=== PATIENT | female | born 1940 | race Caucasian/White ===

== ENCOUNTER 2018-04-26 06:53 | Inpatient (IN) | payer MEDICAID, MEDICARE ==
[~2018-04-26 06:53] MED LIST: MORPHINE SULFATE 15 MG TABLET.SA PO PRN; TRANEXAMIC ACID 1,000 MG in NORMAL SALINE 100 ML IV PRN; ceFAZolin SODIUM 1 GM VIAL IV PRN
[2018-04-26 07:20] LABS: Prothrombin Time (Patient) 11.5 Seconds (9.0-11.0)
[2018-04-26 07:23] LABS: INR 1.15 INR (0.90-1.10)
--- NOTE | 2018-04-26 07:32 | ANES ---
Anesthesia Pre Procedure Eval Vitals/Labs: Last Vital Signs Temp 37.1 C 04/26/18 07:04 Pulse 85 04/26/18 07:04 Resp 18 04/26/18 07:04 BP 170/90 H 04/26/18 07:04 Pulse Ox 92 L 04/26/18 07:04 HOME MEDICATIONS Metoprolol Succinate [Toprol Xl] 50 mg PO DAILY 05/19/16 [Last Taken 04/20/18] Warfarin Sodium [Coumadin] 7.5 mg PO DAILY 11/18/16 [Last Taken 04/20/18] hydrocodone 5 mg-acetaminophen 325 mg tablet 1 tab PO Q4H PRN #20 tab 04/20/18 [Last Taken Unknown] Allergies/Adverse Reactions: Allergies Allergy/AdvReac Type Severity Reaction Status Date / Time No Known Allergies Allergy Verified 04/26/18 07:07 - Planned Procedure Planned Procedure: Right Arthroplasty Total Shoulder Reverse Medication List Reviewed:: Yes Allergies Verified: Yes Medical History (Last Reviewed 04/26/18 @ 07:31 by Adan Rendon CRNA) Fatigue (Acute) Hypertension (Chronic) Urinary incontinence (Chronic) Onset Date: Unknown Screening for colon cancer (Chronic) Onset Date: 11/16/16 Screening for breast cancer (Chronic) Onset Date: 11/16/16 I discussed the importance of cancer screenings including both the risks and benefits associated with the screening test. Not interested and refuses mammogram. Postmenopausal (Chronic) Onset Date: 11/16/16 Patient not interested and refuses DEXA scan. Morbid obesity (Chronic) Onset Date: 06/02/16 Left ventricular hypertrophy (Chronic) Onset Date: 04/16/16 Echocardiogram abnormal (Acute) Onset Date: 04/22/16 EF 67%, mild TR, RVSP 37 mm Hg, Echo 04/16/16 Mild concentric LVH Essential hypertension (Chronic) Onset Date: 06/02/16 Daytime sleepiness (Acute) Onset Date: 11/16/16 Patient likely has undiagnosed PRISCA This was discussed with pt at length, especially given her new diagnosis of AFIB. The patient is adamant that she is not interested in further evaluation with a sleep study. Atrial fibrillation (Chronic) Onset Date: 06/02/16 Arthritis (Chronic) Onset Date: Unknown A-fib (Chronic) Right shoulder injury Onset Date: ~04/10/18 Surgical History (Last Reviewed 04/26/18 @ 07:31 by Adan Rendon CRNA) H/O shoulder surgery Onset Date: Unknown left rotator cuff History of cholecystectomy Onset Date: Unknown History of hernia repair Onset Date: Unknown History of tonsillectomy Onset Date: Unknown age 31 Family History (Last Reviewed 04/26/18 @ 07:31 by Adan Rendon CRNA) Mother , female cancer Cancer Father , lung disease No problems noted. - Family Anesthesia History Family History:: no untoward family reactions to anesthesia, no familial bleeding tendencies, no family history of clotting disorders, no family history of premature - Airway/Neck/Teeth Teeth Condition: missing Denture Type: Full upper Mallampatti Score: 2 Thyromental (T-M) distance: > 6 cm Mandibulo Hyoid distance: > 3 cm - Respiratory Respiratory Physical: lungs clear, decreased breath sounds Smoking Status: Never smoker Discussed smoking cessation including day of surgery: No Sleep Apnea currently treated: No Sleep Apnea by current assessment: Yes Discussed Risks/Treatment of PRISCA: Yes - Cardiovascular Cardiac History: hypertension, hyperlipidemia Tolerate Activity: Fair Heart Sounds: S1 & S2, Irregular - slow - Anesthesia Assessment and Plan ASA Class: PS, III Anesthesia Type Plan: General LMA, Block - for post op pain relief pending INR Planned difficult intubation/equipment available: No
[2018-04-26] MEDS: RINGER'S SOLUTION,LACTATED 1,000 ML IV PRN ×3 (07:40→10:41)
[2018-04-26] MEDS ORDERED: MAG HYDROX/ALUMINUM HYD/SIMETH 30 ML UDC PO PRN (10:35)
[2018-04-26] MEDS ORDERED: ONDANSETRON HCL/PF 2 MG/ML VIAL IV PRN (10:35)
[2018-04-26] MEDS ORDERED: ACETAMINOPHEN 500 MG TABLET PO PRN (10:35)
[2018-04-26] MEDS ORDERED: MORPHINE SULFATE 2 MG/ML DISP.SYRIN IV PRN (10:35)
[2018-04-26] MEDS ORDERED: MAGNESIUM HYDROXIDE 30 ML UDC PO PRN (10:35)
[2018-04-26] MEDS ORDERED: ZOLPIDEM TARTRATE 5 MG TABLET PO PRN (10:35)
[2018-04-26] MEDS ORDERED: diphenhydrAMINE HCL 50 MG/ML VIAL IV PRN (10:35)
--- NOTE | 2018-04-26 10:49 | OR ---
Operative Report - Dictated Report Narrative: DATE OF PROCEDURE: 04/26/2018 PHYSICIAN: Donaldo Hoang MD DEPUTY SHERIFF/INVESTIGATOR: Rafy Keith PA-C (provided and essential set of skilled, educated hands and assisted with transfer, positioning, prepping, draping, manipulation, retraction, placement of implants, irrigation, closure wounds, and application of dressings all which cannot be performed by the available surgical crew) PREOPERATIVE DIAGNOSIS: Comminuted displaced closed right proximal humerus fracture. POSTOPERATIVE DIAGNOSIS: Comminuted displaced closed right proximal humerus fracture. OPERATIONS AND PROCEDURES: Cemented right reverse total shoulder arthroplasty. ANESTHESIA: General plus regional. COMPLICATIONS: None. DRAINS: None. SPECIMENS: Bone for disposal. ESTIMATED BLOOD LOSS: 100 mL. RETAINED IMPLANTS: 1. DePuy Delta Xtend cementless metaglene. 2. Delta Xtend glenosphere, 38 mm standard. 3. Delta Xtend size 1 monoblock humeral epiphysis cemented size 8 standard 4. Delta Xtend standard polyethylene size 38 plus 9 mm. 5. Metaglene locking screws, 36 mm and 36 mm in length. 6. Nonlocking metaglene screws, 18 mm x 1 . INDICATIONS FOR PROCEDURE: Mrs. Galdamez is a 77-year-old female who fell resulting in an injury to her proximal humerus. Options of fixation vs arthoplasty discessed and she wished to proceed with reverse arthroplasty. She wished to proceed with surgical treatment. The risks, benefits, and alternatives were discussed in clinic, including the risk of , blood clots, bleeding, infection, nerve/tendon/blood vessel injury, malposition of components, failure of components, wear or limited range of motion, stiffness, and need for additional procedures, and she wished to proceed. Consent was obtained here in the clinic. DESCRIPTION OF PROCEDURE: After marking the correct extremity in the preoperative holding area, the patient was taken to the operating room. A timeout was performed. IV antibiotics consisting of Ancef were administered prior to procedure. The regional followed by general anesthetic was induced by the nurse ballet master/mistress at my request. [] was then transitioned to beach chair position with all bony prominences well padded. The head in neutral, legs with SCDs and supported,and the nonoperative arm supported. The surgical arm was prescrubbed with alchol then prepped and draped in the standard sterile fashion and the skin was covered with ioban. A deltopectoral incision was made and blunt dissection was carried down through the skin. The cephalic vein was identified, protected, and retracted, during the procedure and was cut thus ligated. We then went through the deltopectoral interval, exposing the proximal humerus. There was a displaced three-part proximal humerus fracture with the humeral head deficient of any soft tissue attachment. The greater tuberosity was tagged. A tag suture was placed in subscapularis tendon as well as the anterior capsule, and this was elevated off the anterior humerus passing along the bicipital groove and into the rotator cuff interval, exposing the proximal humerus. This was then freed off the proximal humerus. A biceps tenotomy was performed and the shoulder was dislocated. The soft tissues were then elevated off the humeral neck as well as circumferentially around the glenoid. The glenoid was exposed. The remaining biceps tendon and labrum were resected. Using tractors, the glenoid was exposed and a guidewire was placed just posterior and inferior to the center of the glenoid. This was made so that it directed slightly superiorly but otherwise perpendicular to the glenoid on the axillary plane. Protecting the surrounding soft tissues, a reamer was utilized in order to remove the remaining cartilage. A hollow handle knife assembler was utilized in order to resect the superior cartilage, and this resulted in a good overall appearance of the glenoid. The center drill lug hole was drilled and had good circumferential bone. The metaglene was then impacted into place and oriented for placement of screws along the mid plane in the superior and inferior quadrants of the glenoid as well as anterior to posterior screws. These were drilled and had appropriate overall length of screws on the superior and inferior metaglene screws. Good purchase was obtained with a 36 mm screw superiorly and 36 mm screw inferiorly. The anterior and posterior screws were drilled and 18mm posterior nonlocking screws were placed. We then locked the superior and inferior screws into place. This gave good overall compression down to the glenoid with flat overall appearance and an appropriate alignment. We returned our attention to the proximal humerus. Reamer up to size 8 was utilized. We then trialed and felt that a size 1 x 8 stem was appropriate. The canal was prepped, a plug was placed distally, and cleaned in order to place cement. The final implant was then held in place while the cement cured and 10 of retroversion. A series of trials up to a 9 mm were utilized. We then returned to the humeral component and placed the trials of polyethylene inserts and found that the 9mm gave good overall longitudinal traction with no gapping. The shoulder was able to reach 140 degrees of forward flexion and 130 degrees of abduction, external rotation was to 80 degrees and with fulcrum and armpit were unable to hinge the joint out of place, and there was no essentially no gapping of the polyethylene off the humeral head nor any signs of impingement on the glenoid neck. We felt that these were the appropriately placed and sized implants. We then dislocated the shoulder, and thus the final polyethylene was impacted into place. The shoulder was reduced, again noted to be stable, was then thoroughly irrigated. The subscapularis and biceps tendon were secured to the surrounding soft tissues using a #2 Ethibond suture. The greater tuberosity was repaired back down with #2 Ethibond. The deltopectoral interval was closed with #0 Vicryl. The deep tissues were then closed with #0 Vicryl, subcutaneous with 3-0 Vicryl, and the skin with neisha. Xeroform, 4 x 4, ABD, soft roll, and forearm Ceferino was applied. The patient was placed in a shoulder sling, awoken, and transferred to postanesthesia care in stable condition. All sponge, needle, and instrument counts were correct prior to closing the wounds. We will obtain postoperative films and be admitted to the floor for postoperative pain control, IV antibiotics, and starting of physical therapy. I anticipate a one to two night hospital stay.
--- NOTE | 2018-04-26 11:02 | ANES ---
Post Anesthesia Discharge - Transfer of Care Transfer of Care handoff given to nurse: Yes - Discharge from PACU Discharge from PACU when meets criteria: Yes
--- NOTE | 2018-04-26 11:05 | ANES ---
Anesthesia Procedure Note Procedure Note: ANESTHESIA PROCEDURE NOTE Date of procedure:[]. 04/26/2018 Time of procedure:[]. 08 Performed by: Azael Rick CRNA Deboning Team Leader: [] Karely Lopez RN . Preprocedure diagnosis: []. Right proximal humerus head fracture. Desire for postoperative analgesia Post procedure diagnosis: Same. Procedure:[] Ultrasound-guided right interscalene nerve block Indications: []. Postoperative analgesia Findings: [] Patient brought to operating room #4 and placed in a semi-Edmonds position. She was sedated. Right side of patient's neck was prepped with ChloraPrep. Ultrasound was utilized to identify brachial plexus in the interscalene groove. A 22-gauge 2 inch regional block needle was advanced under ultrasound guidance till tip of needle was located within the interscalene groove. A total of 35 mL of 0.5% Marcaine with epinephrine 1 200,000 was injected with adequate spread of local anesthesia noted encircling the brachial plexus. Regional block needle was removed intact. EBL: Minimal. Fluids: N/A. Specimen: N/A. Post procedure condition: The patient tolerated the procedure well. No complications were noted. Thank you for this consultation Azael Rick CRNA
--- NOTE | 2018-04-26 11:21 | ANES ---
Post Anesthesia Assessment - Vital Signs Vitals: Last Vital Signs Temp 36.2 C 04/26/18 11:15 Pulse 82 04/26/18 11:15 Resp 19 04/26/18 11:15 BP 131/75 04/26/18 11:15 Pulse Ox 93 04/26/18 11:15 Airway Patency: Normal - Mental Status Level Of Consciousness: Awake - Pain Level Pain Score: 0 - N/V Assessment Nausea/Vomiting Presence: None Dehydration:: No
[2018-04-26] MEDS: KETOROLAC TROMETHAMINE 15 MG/ML VIAL IV SCH ×3 (11:33→23:23)
[2018-04-26] MEDS: DEXTROSE 5%-LACTATED RINGERS 1,000 ML IV PRN ×2 (11:35→21:02)
[2018-04-26] MEDS: ceFAZolin SODIUM 1 GM in DEXTROSE 5 % IN WATER 100 ML IV SCH ×4 (14:18→21:04)
[2018-04-26] MEDS ORDERED: SENNOSIDES/DOCUSATE SODIUM 1 TAB TABLET PO SCH (21:00)
[2018-04-27] MEDS: oxyCODONE HCL/ACETAMINOPHEN 1 TAB TABLET PO PRN ×3 (01:22→12:40)
[2018-04-27] MEDS: ceFAZolin SODIUM 1 GM in DEXTROSE 5 % IN WATER 100 ML IV SCH ×2 (01:24)
[2018-04-27] MEDS: KETOROLAC TROMETHAMINE 15 MG/ML VIAL IV SCH ×2 (04:44→10:31)
[2018-04-27 05:28] LABS: Hematocrit 28.4 % (37.0-47.0); Hemoglobin 9.1 gm/dL (12.5-16.0); Mean Cell Volume 102.2 fl (78-100); Mean Corpuscular Hemoglobin 32.7 pg (27-31); Mean Platelet Volume 8.6 fl (8-12.5); Platelet Count 214 K/mm3 (150-450); Red Blood Count 2.78 M/mm3 (4.2-5.4); Red Cell Distribution Width 15.1 % (11.5-14.0); White Blood Count 6.1 K/mm3 (4.0-10.5)
[2018-04-27 05:38] LABS: Prothrombin Time (Patient) 10.9 Seconds (9.0-11.0)
[2018-04-27 05:39] LABS: BUN/Creatinine Ratio 13.6 (9.0-21.6); Carbon Dioxide 26.9 mmol/L (24-32.6); Estimated Creat Clear 45.6; Potassium 3.9 mmol/L (3.4-4.6)
[2018-04-27 05:40] LABS: Calcium * 8.1 mg/dL (7.9-10.9)
[2018-04-27] MEDS: DEXTROSE 5%-LACTATED RINGERS 1,000 ML IV PRN (05:52)
[2018-04-27 05:54] LABS: INR 1.09 INR (0.90-1.10)
[2018-04-27] MEDS ORDERED: METOPROLOL SUCCINATE 50 MG TABLET.SA PO SCH (09:00)
--- NOTE | 2018-04-27 12:00 | DS ---
(1) Acute blood loss anemia Problem: Acute (2) S/p reverse total shoulder arthroplasty Problem: Acute Qualifiers: Laterality: right Qualified Code(s): Z96.611 - Presence of right artificial shoulder joint (3) Humerus fracture Problem: Chronic Qualifiers: Encounter type: subsequent encounter Humerus Location: proximal Fracture type: closed Fracture alignment: displaced Laterality: right (4) Atrial fibrillation Problem: Chronic (5) Essential hypertension Problem: Chronic (6) Left ventricular hypertrophy Problem: Chronic (7) Morbid obesity Problem: Chronic Description of Stay: Mrs. Galdamez was admitted to the floor after undergoing reverse right total shoulder arthroplasty. Tolerated this well. Was admitted to the floor postoperatively for 24 hours of IV antibiotics, pain control, medical comanagement, and occupational and physical therapy. OT and PT were consulted to assist with activities of daily living and ambulation. Was made non- weightbearing with a shoulder mobilizer. Pain was initially controlled with IV regimen. This was transitioned to oral once tolerating a by mouth intake. Was resumed on home diet and medications. She was resumed on her Coumadin and SCD were utilized for DVT prophylaxis. Vital signs remained stable to the hospital course. Serial labs were obtained which showed a final hemoglobin of 9.1 grams. BMP was reviewed and was stable. Physical examination throughout the hospital course showed an extremity that had sensation that was intact to light touch, palpable pulses, a benign wound, motor intact to the hand and wrist. Once an oral pain regimen was tolerated and physical therapy goals were met, it was felt that they were stable for discharge to home. Instructions: Continue with non-weightbearing with range of motion per protocol. Keep dressings intact. Use shoulder immobilizer as instructed. Cover wound while showering if there is any drainage. Continue with physical therapy. Resume home diet. Report any fever over 101.5 Fahrenheit, uncontrolled pain, increased drainage, foul odor of drainage, new or increased calf pain or shortness of breath, or any other significant complaints. No driving until instructed otherwise. Follow up in approximately 10-14 days. Procedures Performed: see notes below List Procedures: Right reverse total shoulder arthroplasty Results and Findings: Lab Pending Results 04/26/18 07:10: PT 11.5 H, INR (Anticoag Therapy) 1.15 H 04/27/18 05:00: WBC 6.1, RBC 2.78 L, Hgb 9.1 L, Hct 28.4 L, MCV 102.2 H, MCH 32.7 H, MCHC 32.0, RDW 15.1 H, Plt Count 214, MPV 8.6 04/27/18 05:00: PT 10.9, INR (Anticoag Therapy) 1.09 04/27/18 05:00: Sodium 138, Plasma Sodium 139, Potassium 3.9, Chloride 105, Carbon Dioxide 26.9, Anion Gap 10.0, BUN 11, Creatinine 0.81, Est GFR (Non-Af Amer) 73, BUN/Creatinine Ratio 13.6, Random Glucose 139 H, Calcium 8.1 Discharge Location: Home Disposition: Home self-care Condition: Good Discharge Activity: Non-Weight bearing Discharge Diet: General/regular food Referrals: Adriana Phillip DO [Primary Care Provider] - Additional Patient Instructions (free text): Follow up with Orthopedic Dr. Hoang 05/11 at 10:45am. [facility] Physical Therapy 04/28 at 2:30pm. Prescriptions (Any new or edited meds): oxyCODONE HCL/ACETAMINOPHEN [Percocet 5 MG/325 MG] 2 tab PO Q4H PRN #60 tab PRN Reason: Moderate Pain (Pain Scale 4-6) Sennosides/Docusate Sodium [Senokot-S] 2 tab PO HS #60 tab Complete Home Medications List: Complete Home Medication List: Metoprolol Succinate [Toprol Xl] 50 mg PO DAILY 05/19/16 Warfarin Sodium [Coumadin] 7.5 mg PO DAILY 11/18/16 Sennosides/Docusate Sodium [Senokot-S] 2 tab PO HS #60 tab 04/27/18 oxyCODONE HCL/ACETAMINOPHEN [Percocet 5 MG/325 MG] 2 tab PO Q4H PRN #60 tab 04/27/18 Amb Orders for Discharge: PT Evaluation and Treatment* Facility: [facility], Location: Rehabilitation Services
[2018-04-27 14:39] VITALS: BP 124/71
[2018-04-27] MEDS ORDERED: WARFARIN SODIUM 7.5 MG TABLET PO SCH (17:00)
== END 2018-04-27 13:05 | disposition home or self-care (01) | DRG 483 ==
LOC: MS 06:53
PROVIDERS: ADMIT Orthopaedic Surgery; ATTEND Orthopaedic Surgery
DX: I48.2 Chronic atrial fibrillation; M19.90 Unspecified osteoarthritis, unspecified site; M79.89 Other specified soft tissue disorders; I11.9 Hypertensive heart disease without heart failure; Z68.42 Body mass index [BMI] 45.0-49.9, adult; S42.201D Unspecified fracture of upper end of right humerus, subsequent encounter for fracture with routine healing; D62 Acute posthemorrhagic anemia; E78.5 Hyperlipidemia, unspecified; W01.0XXD Fall on same level from slipping, tripping and stumbling without subsequent striking against object, subsequent encounter; Z79.01 Long term (current) use of anticoagulants; E66.01 Morbid (severe) obesity due to excess calories
CPT/HCPCS: 36415; 73030; 80048; 85027; 85610; 97110; 97116; 97162; 97166